=== PATIENT | female | born 1955 | race Caucasian/White ===

== ENCOUNTER → 2017-06-23 | Outpatient (CLI) | payer OTHER ==
[~2017-06-23] VITALS: Ht 148.6 cm; Wt 49.5 kg
[~2017-06-23] MED LIST: CHLORHEXIDINE GLUCONATE 2 % 1 PACK (2 CLOTHS) TOPICAL PRN; CLAR10CA3 PO; LACTATED RINGER'S 1000 ML IV PRN; LIDOCAINE HCL 1% PF 5 ML SYRINGE OTHER ONE; METOPROLOL TARTRATE 25 MG TAB PO PRN; MONT10TA4 PO; PHENYLEPH/NS 1000 MCG/10 ML SYR IV ONE; POVIDONE IODINE 5% (ANTISEPSIS KIT) 4 APPLICATIONS EACH NARE PRN; PROPOFOL 200 MG/20 ML AMP IV ONE; SODIUM CHLORID 0.9% 500 ML IV PRN; ZALE10 PO
--- NOTE | 2017-06-23 13:35 | GIPROC ---
[facility] [address] [facility]. [facility], [address] COLONOSCOPY PROCEDURE REPORT EXAM DATE: 06/23/2017 PATIENT NAME: Shell Nicole MR #: [id number] BIRTHDATE: 1955 ENDOSCOPIST: Jesus Lim MD ORDER #: [id number] YARD ASSOCIATE: Frida Serrato and Janell Hutchinson STATUS: outpatient INDICATIONS: The patient is a 62 yr old female here for a colonoscopy due to screening; average risk. PROCEDURE PERFORMED: Colonoscopy, screening MEDICATIONS: Per Anesthesia. PREP QUALITY: good ESTIMATED BLOOD LOSS: None CONSENT: The patient understands the risks and benefits of the procedure and understands that these risks include, but are not limited to: sedation, allergic reaction, infection, perforation and/or bleeding. Alternative means of evaluation and treatment include, among others: physical exam, x-rays, and/or surgical intervention. The patient elects to proceed with this endoscopic procedure. medical equipment was checked for proper function. Hand hygiene and appropriate measures for infection prevention was taken. After the risks, benefits and alternatives of the procedure were thoroughly explained, Informed consent was verified, confirmed and timeout was successfully executed by the treatment team. A digital exam The Pentax [id number] endoscope was introduced through the anus and advanced to the cecum, which was identified by both the appendix and ileocecal valve. The instrument was then slowly withdrawn as the colon was fully examined. COLON FINDINGS: Mild diverticulosis was noted in the sigmoid colon. Retroflexion was performed and was normal The scope was then completely withdrawn from the patient and the procedure terminated. ADVERSE EVENTS: There were no complications. IMPRESSIONS: 1. Mild diverticulosis was noted in the sigmoid colon 2. Retroflexion was performed and was normal RECOMMENDATIONS: High fiber diet : 25gm/day with at least two quarts of liquid/day. RECALL: Return 10 years Colonoscopy Jesus Lim MD eSigned: Jesus Lim MD 06/23/2017 1:34 PM cc: Agatha
[2017-06-23 14:00] VITALS: BP 148/83; PULSE 69; RESP 20; TEMP 97.6; O2SAT 100
--- NOTE | 2017-06-24 13:34 | EKG ---
Date Performed: 06/23/2017 Time Performed: 12:10:23 PTAGE: 62 years EKG: Sinus rhythm NORMAL ECG NO PREVIOUS TRACING DOCTOR: Talha Sampson Interpretating Date/Time 06/24/2017 13:34:22
== END ==
LOC: HOR 11:34
DX: Z12.11 Encounter for screening for malignant neoplasm of colon (principal); Z01.810 Encounter for preprocedural cardiovascular examination
CPT/HCPCS: 00810; 45378; 93005; J2370